=== PATIENT | female | born 1955 | race Caucasian/White ===

== ENCOUNTER 2025-04-27 10:36 | Outpatient (AMB) | payer MEDICARE, OTHER, SELFPAY ==
--- NOTE | 2025-04-27 11:01 | MHC.PC.OV ---
Vital Signs 04/27/25 11:09 Height 5 ft 4 in Weight 123 lb 8 oz BMI 21.2 BP 118/68 Blood Pressure Location Rt brachial Position Sitting Respiration 15 Pulse 82 Pulse Source Pulse Oximeter Temp 97.7 F Temp Source Temporal Artery Scan Pulse Oximetry (%) 98 Oxygen Delivery Method Room Air Intake Visit Reasons: medication refill/sciatic issue Intake Note: Ora presents in the office today to establish care. Weigher Packing Required: No Is last menstrual period known: No Post menopausal: Yes Patient : No Allergies Opioids - Morphine Analogues (Opioids-Morphine & Related) Allergy (Unknown, Unverified 04/28/25 11:05) MIGRAINE Sulfa (Sulfonamide Antibiotics) Allergy (Unknown, Unverified 04/28/25 11:05) SWELLING Tobacco use date assessed: 04/27/25 Fall risk assessment: No Falls in past year Last assessed Fall Risk: 04/27/25 Dental Screening Dental Screen Date: 04/27/25 Did you have a dental visit in the last 12 months?: Yes Did you have a dental problem in the last 6 months where you did not have access to dental care?: No Was dental information given to patient?: Patient has dentist HPI HPI Comments History of Present Illness Details The patient is a 69 year old female with a past medical history of hyperlipidemia, hypothyroid, osteoporosis, IgA deficiency, hypogammaglobulinemia, Von Willebrands, melanoma, lumbar radiculopathy presenting to establish care. Transfer from Dr Dhaliwal 09/2024 Endocrine: On levothyroxine. Osteoporosis on fosamax. Follows with [facility]. On fosamax 35 oral weekly. Has been intolerant of reclast in the past MSK: Gabapentin -for sleep and radicular back pain Migraine-On imitrex prn Allergies/Immunology: Dr Leggett. On Hizentra. Follows with dermatology, Dr Rich. Goes to [facility] once annually for mammography Follows with Jose Angel for frequent UTI Colon 12/11/2023-Dr Rose 10 year recall DXA 01/2025 Stopped seeing gynecology (Dr Marroquin). Mammo November 2024-[facility]. Has frequent call back ROS CONSTITUTIONAL: Denies weight loss, fever and chills. HEENT: Denies changes in vision and hearing. RESPIRATORY: Denies SOB and cough. CV: Denies palpitations and CP GI: Denies abdominal pain, nausea, vomiting and diarrhea. : Denies dysuria and urinary frequency. MSK: Denies new myalgia and joint pain. SKIN: Denies rash and pruritus. NEUROLOGICAL: Denies headache PSYCHIATRIC: Denies recent changes in mood. PHYSICAL EXAM: GENERAL: Alert and oriented x 3. NAD EYES: EOMI. Anicteric. HENT: Moist mucous membranes. No scleral icterus. No cervical lymphadenopathy. LUNGS: Clear to auscultation bilaterally. CARDIOVASCULAR: Regular rate and rhythm. No murmur. No JVD. ABDOMEN: Soft, non-tender +bs EXTREMITIES: No edema. Non-tender. SKIN: No rashes or lesions. Warm. NEUROLOGIC: No focal neurological deficits. CN II-XII grossly intact PSYCHIATRIC: Cooperative. Appropriate mood and affect [facility] Medical History (Updated 04/28/25 @ 14:26 by Sirena Ramos MD) Migraine Shingles Kidney infection Headache Spine disorder Osteoporosis Thyroid disorder Sinusitis Melanoma Broken wrist Broken leg Surgical History (Updated 04/27/25 @ 11:14 by Reshma Ashley [facility]) Hx of colonoscopy History of appendectomy History of bladder surgery Family History (Updated 04/27/25 @ 11:17 by Reshma Ashley CMA) Brother Substance abuse Alcoholism Mother Hypertension Breast cancer Father Hypertension Hyperlipidemia Maternal Grandmother Breast cancer Paternal Grandmother Lung cancer Social History (Updated 04/27/25 @ 11:09 by Reshma Ashley CMA) Housing: House Alcohol intake: current Patient Tobacco Use Status: Never used Tobacco e-Cigarette/Vaping Use: Never Used Second Hand Smoke Exposure: No service: No Current occupational status: employed and retired Cognitive needs: No Hearing needs: No Vision needs: No Questionnaire PHQ-9 Over the last 2 weeks, how often have you been bothered by any of the following problems? 1. Little interest or pleasure in doing things: not at all 2. Feeling down, depressed, or hopeless: not at all 3. Trouble falling or staying asleep, or sleeping too much: several days 4. Feeling tired or having little energy: several days 5. Poor appetite or overeating: not at all 6. Feeling bad about yourself - or that you are a failure or have let yourself or your family down: not at all 7. Trouble concentrating on things, such as reading the newspaper or watching television: not at all 8. Moving or speaking so slowly that other people could have noticed. Or the opposite - being so fidgety or restless that you have been moving around a lot more than usual: not at all 9. Thoughts that you would be better off or of hurting yourself in some way: not at all Total score: 2 Depression Screening Interpretation: Negative Depression Screening Done: Yes 13016 - PHQ-9 Billing: Yes Source: Developed by Drs. Keron Hartman, Amira Lacy, Abraham Spencer and colleagues, with an educational junior from [employer]. Thrive Questionnaire Date Thrive assessed: 04/27/25 I am a: Parent/Caregiver What is your living situation today?: I have a steady place to live Within the past 12 months, did the food you bought not last and you didn't have the money to get more?: Never true Within the past 12 months, did you worry whether your food would run out before you got money to buy more?: Never true Do you have trouble paying for medicines?: No Do you have trouble getting transportation to medical appointments?: No Do you have trouble paying your heating and electricity bill?: No Do you have trouble taking care of your child, family member or friend?: No Do you have trouble with day-to-day activities such as bathing, preparing meals, shopping, managing finances, etc.?: No Are you currently unemployed and looking for a job?: No Are you interested in more education?: No Please select the resources that you would like help with: None Currently or been in a relationship where the following occur: No concerns reported THRIVE Score: 0 AUDIT C Alcohol Use Questionnaire (AUDIT-C) 1. How often do you have a drink containing alcohol?: 2-4 times a month 2. How many drinks containing alcohol do you have on a typical day when you are drinking?: 1 or 2 3. How often do you have six or more drinks on one occasion?: Never Total Score: 2 NEHAL-7 AMB Questionnaire NEHAL-7 Date NEHAL - 7 assessed: 04/27/25 Feeling nervous, anxious, or on edge: 0 = Not at all Not being able to stop or control worryin = Not at all Worrying too much about different things: 0 = Not at all Trouble relaxin = Not at all Being so restless that it is hard to sit still: 0 = Not at all Becoming easily annoyed or irritable: 0 = Not at all Feeling afraid as if something awful might happen: 0 = Not at all Total NEHAL-7 score (0-4 normal; 5-9 mild; 10-14 moderate; 15-21 severe): 0 Source: Developed by Drs. Keron Hartman, Amira Lacy, Abraham Spencer and colleagues, with an educational junior from [employer]. NEHAL-7 Assessment Billing NEHAL-7 Assessment Tool: NEHAL-7 Assessment 20819 Physical exam (Primary Care) Vital Signs: Last Vital Signs Temp 97.7 F 04/27/25 11:09 Pulse 82 04/27/25 11:09 Resp 15 04/27/25 11:09 BP 118/68 04/27/25 11:09 Pulse Ox 98 04/27/25 11:09 Oxygen Delivery Method Room Air 04/27/25 11:09 BMI result Body Mass Index 21.2 Tobacco/Smoking Status: Tobacco use Status Tobacco use date assessed 04/27/25 04/27/25 11:08 Patient Tobacco Use Status Never used Tobacco 04/27/25 11:09 e-Cigarette/Vaping Use Never Used 04/27/25 11:09 PHQ-9: PHQ-9 Score PHQ-9: Total score 2 04/27/25 11:08 Depression Screening Interpretation: Negative Thrive Assessment: Date of Thrive Assessment Date Thrive assessed 04/27/25 04/27/25 11:03 Currently or been in a relationship where the following occur: No concerns reported Coding Level of Care Code Est Pt Level 4 (97532) Diagnoses Establishing care with new doctor, encounter for Z76.89 Hyperlipidemia, unspecified hyperlipidemia type E78.5 Hyperlipidemia type: unspecified Osteoporosis, unspecified osteoporosis type, unspecified pathological fracture presence M81.0 Osteoporosis type: unspecified Presence of current pathological fracture: unspecified Thyroid disorder E07.9 Malignant melanoma, unspecified site C43.9 Melanoma location: unspecified site Migraine without status migrainosus, not intractable, unspecified migraine type G43.909 Migraine type: unspecified Status migrainosus presence: without status migrainosus Intractability: not intractable Additional Codes NEHAL-7 Assessment Billing - NEHAL-7 Assessment Tool: NEHAL-7 Assessment 69369 ([id number]) PHQ-9 - 51089 - PHQ-9 Billing: Yes ([id number]) Assessment & Plan Assessment & Plan (1) Establishing care with new doctor, encounter for: Code(s): Z76.89 - Persons encountering health services in other specified circumstances (2) Hyperlipidemia: Code(s): E78.5 - Hyperlipidemia, unspecified Category: Medical Qualifiers: Hyperlipidemia type: unspecified Qualified Code(s): E78.5 - Hyperlipidemia, unspecified (3) Osteoporosis: Code(s): M81.0 - Age-related osteoporosis without current pathological fracture Category: Medical Qualifiers: Osteoporosis type: unspecified Presence of current pathological fracture: unspecified Qualified Code(s): M81.0 - Age-related osteoporosis without current pathological fracture (4) Thyroid disorder: Code(s): E07.9 - Disorder of thyroid, unspecified Category: Medical (5) Melanoma: Code(s): C43.9 - Malignant melanoma of skin, unspecified Category: Medical Qualifiers: Melanoma location: unspecified site Qualified Code(s): C43.9 - Malignant melanoma of skin, unspecified (6) Migraine: Code(s): G43.909 - Migraine, unspecified, not intractable, without status migrainosus Category: Medical Qualifiers: Migraine type: unspecified Status migrainosus presence: without status migrainosus Intractability: not intractable Qualified Code(s): G43.909 - Migraine, unspecified, not intractable, without status migrainosus Plan 69 year old female presenting to establish care Past medical, surgical, social reviewed Continues follow up with endocrinology. continue levothyroxine, fosamax Immunodeficiency-continue immunology follow up Migraines are stable Orders: Orders Lipid Panel 04/27/25 E78.5 - Hyperlipidemia, unspecified
[2025-04-27 11:09] VITALS: BP 118/68; PULSE 82; RESP 15; TEMP 36.5; O2SAT 98; BMI 21.2
--- OUTSIDE RECORDS SUMMARY | 2025-04-27 13:29 | XMS_ITS | Encounter Summary ---
Author Organization [facility] Address [address] [place] [address] [place] [id number] Phone Care Team Providers Care Mail Room Clerk Name Role Phone Js Dhaliwal DO Primary Care Provider Self-Referred, Patient Unavailable Unavailab Bishop Giles MD Unavailable [phone] Ankit Leggett DO Unavailable [phone] Isabel Castillo MD, MPH Unavailable [phone] Encounter Details Date Type Department Care Team (Late st Contact Info) Description 11/04/2018 Procedure Pass [facility] Periop [address] [place] [address] Social History Tobacco Use Types Packs/Day Years Used Date Smoking Tobacco: Never Smokeless Tobacco: Never Comments No Sex and Gender Information Value Date Recorded Sex Assigned at Female 05/19/2021 9:36 AM EST Legal Sex Female 6:07 PM EST Gender Identity Female 11/27/2019 10:26 AM EDT Sexual Orientation Straight 11/27/2019 10 :26 AM EDT documented as of this encounter Plan of Treatment Not on file documented as of this encounter Visit Diagnoses Not on filedocumented in this encounter Additional Health Concerns Infection Onset Date Last Indicated Resolved Time CoV-Exposed 07/04/2020 07/12/2020 07/18/2020 1:23 AM EST documented as of this encounter Care Teams Mail Room Clerk Relationship Specialty Start Date End Date Ti Dhaliwaly DO [place] [address] [facility] [place] [address] PCP - General Family Medicine 10/14/18 Self-Referred, Patient 10/14/18 Bishop Meade MD [address] [place] [id number] Referring Physician Dermatology 10/20/18 Ankit Leggett DO [address] [place] [phone] [email or web address] Allergy and Immunology 10/20/18 Isabel Castillo MD, MPH [address] [place] [address] [place] [address] [email or web address] Dermatology 07/08/20 documented as of this encounter Additional Source Comments The information contained in this document represents components of the legal health record. It is not the complete legal health record.[facility]
--- OUTSIDE RECORDS SUMMARY | 2025-04-27 13:29 | XMS_ITS | Clinical Summary ---
Author Organization [employer] Address [address] [place] [address] [address] [place] [address] Care Team Providers Care Roof Plumber Name Role Phone Unavailable Primary Care Provider Unavailabl e Allergies Active Allergy Reactions Criticality Noted Date Comments Sulfa Antibiotics 01/02/2023 Medications SUMAtriptan (Imitrex) 100 MG tablet sumatriptan 100 mg tablet TAKE 1 TABLET BY MOUTH EVERY DAY NEEDED Active SUMAtriptan (Imitrex) 50 MG tablet Take 50 mg by mouth. 0 Active moxifloxacin in NaCl (Avelox) 400 MG/250ML IVPB 0 Active methylPREDNISolo ne (Medrol Dospak) 4 MG tablets Active levothyroxine (Synthroid, Levoxyl) 50 MCG tablet Take 50 mcg by mouth. 3 Active immune globulin, human, (Hizentra) subcutaneous infusion Inject 200 mg/kg under the skin. 0 Active cyanocobalamin (Vitamin B-12) 250 MCG tablet Take 250 mcg by mouth in the morning. Active Cholecalciferol (Vitamin D) 50 MCG (1999) capsule Active budesonide-formo terol (Symbicort) 160-4.5 MCG/ACT inhaler INHALE 2 PUFFS BY MOUTH TWICE A DAY WHEN SICK 2 Active amoxicillin-clav ulanate (Augmentin) 500-125 MG tablet Active amitriptyline (Elavil) 25 MG tablet Take 25 mg by mouth in the morning. Active amitriptyline (Elavil) 25 MG tablet Take 1 tablet by mouth in the evening. 0 Active gabapentin (Neurontin) 100 MG capsule Take by mouth. Acti ve Encounters Date Type Department Care Team Description 03/15/2025 10:00 AM EST Office Visit [facility] [address] [place] [address] Erika Stevens 03/12/2025 Travel 03/04/2025 Travel from Last 3 Months Social History Tobacco Use Types Packs/Day Years Used Date Smoking Tobacco: Never Smokeless Tobacco: Never Tobacco Cessation:Counseling Given: Not Answered Comments No Sex and Gender Information Value Date Recorded Sex Assigned at Female 12/13/2022 4:03 PM EDT Legal Sex Female 2:41 PM EDT Gender Identity Female 12/13/2022 4:03 PM EDT Sexual Orientation Straight 12/13/2022 4: 03 PM EDT Last Filed Vital Signs Vital Sign Reading Time Taken Comments Blood Pressure 122/76 03/15/2025 9:28 AM EST Pulse 78 04/27/2024 9:14 AM EST Temperature - - Respiratory Rate - - Oxygen Saturation - - Inhaled Oxygen Concentration - - Weight - - Height - - Body Mass Index - - Plan of Treatment Upcoming Encounters Date Type Department Care Team (Late st Contact Info) Description 09/14/2025 9:30 AM EDT Office Visit [facility] [address] [place] [address] Lyndsay Earl Health Maintenance Due Date Last Done Comments CT Colonography 1957 Colonoscopy 1957 Colorectal Cancer Screening 1957 Dental X-Ray: Full Mouth 1957 Depression Screening 1957 FIT DNA/Cologuard 1957 FIT 1957 FOBT 1957 SDOH Screening 1957 Sigmoidoscopy 1957 Alcohol/Substance Use Screening 1969 Hepatitis C Screening 11/23/1975 DTaP/Tdap/Td Vaccines (1 - Tdap) 1976 Pneumococcal Vaccine: 50+ Years (1 of 2 - PCV) 1976 Zoster Vaccines (1 of 2) 1976 Mammogram 1997 RSV Patients and Patients Aged 60 years or older (1 - Risk 50-74 years 1-dose series) 11/23/2007 COVID-19 Vaccine (3 - Pfizer risk series) 09/07/2020 08/10/2020, 07/20/2020 Influenza Vaccine (#1) 2025 , 02/24/2020, 03/31/2019, Additional history exists Dental Oral Exam 09/13/2025 03/15/2025, 02/2024, 04/17/2023 Dental Prophylaxis 09/13/2025 03/15/2025, 1 06/28/2023, 10/21/2023, Additional history exists Tobacco Screening 03/15/2026 03/15/2025 Dental X-Ray: Bitewings 03/16/2026 03/15/2025, 01/02 HIB Vaccines Aged Out No longer eligi ble based on patient's age to complete this topic HPV Vaccines Aged Out No longer eligi ble based on patient's age to complete this topic Hepatitis A Vaccines Aged Out No long er eligible based on patient's age to complete this topic Hepatitis B Vaccines Aged Out No long er eligible based on patient's age to complete this topic IPV Vaccines Aged Out No longer eligi ble based on patient's age to complete this topic Meningococcal B Vaccine Aged Out No l onger eligible based on patient's age to complete this topic Meningococcal Vaccine Aged Out No mackenzie thomas eligible based on patient's age to complete this topic RSV under 20 months Aged Out No longe r eligible based on patient's age to complete this topic Rotavirus Vaccines Aged Out No longer eligible based on patient's age to complete this topic Procedures Procedure Name Priority Date/Time Associated Diagnosis Comments PERIODIC ORAL EVALUATION - ESTABLISHED PATIENT Routine 03/15/2025 10:00 AM EST BITEWINGS - 4 RADIOGRAPHIC IMAGES Routine 03/15/2025 10:00 AM EST PROPHYLAXIS - ADULT Routine 03/15/2025 1 0:00 AM EST from Last 3 Months Insurance DENTAL - [facility] [place] [id number]
--- OUTSIDE RECORDS SUMMARY | 2025-04-27 13:29 | XMS_ITS | Encounter Summary ---
Author Organization [employer] Address [address] [place] [address] Care Team Providers Care Customer Success Advocate Name Role Phone Unavailable Primary Care Provider Unavailabl e Reason for Visit * Reason Onset Date Comments antibiotic 02/26/2023 Encounter Details Date Type Department Care Team ([facility] st Contact Info) Description 02/26/2023 Telephone [facility] [address] [place] [address] Kashmir García DDS [address] [place] [address] antibiotic Social History Tobacco Use Types Packs/Day Years Used Date Smoking Tobacco: Never Assessed Comments No Sex and Gender Information Value Date Recorded Sex Assigned at Female 12/13/2022 4:03 PM EDT Legal Sex Female 2:41 PM EDT Gender Identity Female 12/13/2022 4:03 PM EDT Sexual Orientation Straight 12/13/2022 4: 03 PM EDT documented as of this encounter Miscellaneous Notes * Telephone Encounter - Cynthia Sutton - 02/26/2023 9:36 AM EDT Patient came in yesterday and saw Dr. Berkowitz. She states she has an infection that has travelled upinto her sinus. Yesterday she had a little pain but today the pain is increasingly worse. She is looking for antibiotic script to be sent over. She has an appt for RCT on 03/18 and doesn't want to gothat long without something to help with the infection. Can you assist with medication? documented in this encounter Plan of Treatment Upcoming Encounters Date Type Department Care Team (Late st Contact Info) Description 09/14/2025 9:30 AM EDT Office Visit [facility] [address] [place] [address] Lyndsay Earl documented as of this encounter Visit Diagnoses Not on filedocumented in this encounter
--- OUTSIDE RECORDS SUMMARY | 2025-04-27 13:29 | XMS_ITS | Clinical Summary ---
Author Organization Located Within [facility] Address [address] [place] [address] [place] [address] Phone Care Team Providers Care Acute Coordinator Name Role Phone IsraJs Primary Care Provider Self-Referred, Patient Unavailable Unavailab Bishop Giles MD Unavailable [phone] Ankit Leggett DO Unavailable [phone] Isabel Castillo MD, MPH Unavailable [phone] Allergies Active Allergy Reactions Criticality Noted Date Comments Codeine 11/04/2018 Migraines Meperidine Headaches 10/29/2018 Migraine Morphine Headaches 10/29/2018 Terrible migraines Has tolerated low-dose dilaudid Oxycodone-Acetaminophen Headaches 10/29/2018 Migraine Sulfa (Sulfonamide Antibiotics) Swelling 10/14/2018 Medications immune globulin, human, (HIZENTRA) 4 gram/20 mL (20 %) Soln Inject 200 mg/kg under the skin every 7 days. Active levothyroxine (SYNTHROID, LEVOTHROID) 50 MCG tablet Take 50 mcg by mouth every morning. Active sumatriptan succinate (IMITREX ORAL) Take by mouth as needed. Active cholecalciferol, vitamin D3, (VITAMIN D3 ORAL) Take 2,000 Units by mouth daily. Active Active Problems Problem Noted Date Diagnosed Date Cellulitis 12/06/2018 Melanoma of lower leg, right 10/22/2018 Common variable immunodeficiency Hypothyroidism Malignant melanoma Migraines Osteoporosis Family History Medical History Relation Comments Basal cell carcinoma Father Breast cancer Maternal Grandmother Breast cancer Mother Lung cancer Paternal Grandmother Relation Status Comments Father Alive Maternal Grandmother Mother Alive Paternal Grandmother Social History Tobacco Use Types Packs/Day Years Used Date Smoking Tobacco: Never Smokeless Tobacco: Never Education Answer Date Recorded Are you interested in more education? Not on dorys e 09/16/2022 Are you concerned about learning? Not on file 09/16/2022 No 09/16/2022 No 09/16/2022 Digital Access Answer Date Recorded No 10/07/2022 No 10/07/2022 Reliable internet access at home? Not on file 10/07/2022 Device with a working camera? Not on file Comments No Sex and Gender Information Value Date Recorded Sex Assigned at Female 05/19/2021 9:36 AM EST Legal Sex Female 6:07 PM EST Gender Identity Female 11/27/2019 10:26 AM EDT Sexual Orientation Straight 11/27/2019 10 :26 AM EDT Last Filed Vital Signs Vital Sign Reading Time Taken Comments Blood Pressure 146/67 08/10/2024 10:09 AM EDT Pulse 66 08/10/2024 10:09 AM EDT Temperature 36.3 C (97.4 F) 08/10/2024 10:09 AM EDT Respiratory Rate 16 08/10/2024 10:09 AM EDT Oxygen Saturation 100% 08/10/2024 10:09 AM EDT Inhaled Oxygen Concentration - - Weight 59.5 kg (131 lb 2.8 oz) 08/10/2024 10:09 AM EDT Height 163.7 cm (5' 4.45 ) 08/10/2024 10:09 AM E DT Body Mass Index 22.2 08/10/2024 10:09 AM EDT Plan of Treatment Health Maintenance Due Date Last Done Comments Adult Td,Tdap Booster 1957 LIPID PANEL 1957 TSH LEVEL 1957 DEPRESSION SCREENING 1969 HEPATITIS C SCREENING 11/23/1975 PNEUMOCOCCAL VACCINES (50+ years) (1 of 2 - PCV) 1976 ZOSTER VACCINES (1 of 2) 1976 MAMMOGRAM 1997 COLOGUARD 2002 COLONOSCOPY 2002 COLORECTAL CANCER SCREENING 2002 FIT TEST 2002 FOBT 2002 SIGMOIDOSCOPY 2002 VIRTUAL COLONOSCOPY 2002 RSV VACCINE (1 - Risk 50-74 years 1-dose series) 11/23/2007 OSTEOPOROSIS SCREENING INITIAL (ONE-TIME) 2022 INFLUENZA VACCINE (#1) 2024 , 02/24/2020, 03/31/2019, Additional history exists COVID-19 VACCINE ( season) 2025 08/10/2020, 07/20/2020 SMOKING STATUS SCREENING (Once After 26 Yrs) Completed 05/18/2019 HEPATITIS A VACCINES Aged Out No long er eligible based on patient's age to complete this topic HIB VACCINES Aged Out No longer eligi ble based on patient's age to complete this topic MENINGOCOCCAL VACCINES (ACWY) Aged Out No longer eligible based on patient's age to complete this topic MENINGOCOCCAL VACCINES (B) Aged Out N o longer eligible based on patient's age to complete this topic Medical Devices Not on file Insurance [facility] MEDICARE SUPPLEMENT MEDICARE PART A & B [facility] MEDICARE SUPPLEMENT MEDICARE PART A & B [facility] MEDICARE SUPPLEMENT MEDICARE PART A & B [facility] MEDICARE SUPPLEMENT MEDICARE PART A & B [facility] MEDICARE SUPPLEMENT MEDICARE PART A & B [facility] MEDICARE SUPPLEMENT MEDICARE PART A & B Advance Directives For more information, please contact: [phone] (9AM - 5PM [facility], Saturday-Saturday) Documents on File Type Date Recorded Patient Front Desk Supervisor Expl anation Healthcare Proxy 10/29/2018 10/29/2018 * Full Code (Presumed) (Latest Code Status on File) Date Activated Date Inactivated Comments 12/06/2018 1:50 AM 12/07/2018 1:29 PM Care Teams Acute Coordinator Relationship Specialty Start Date End Date Js Dhaliwal DO [address] [facility] [place] [address] PCP - General Family Medicine 10/14/18 Self-Referred, Patient 10/14/18 Bishop Meade MD [address] [place] [address] Referring Physician Dermatology 10/20/18 Ankit Leggett DO [address] [place] [address] [email or web address] Allergy and Immunology 10/20/18 Isabel Castillo MD, MPH [address] [place] [address] [place] [address] [email or web address] Dermatology 07/08/20 Additional Source Comments The information contained in this document represents components of the legal health record. It is not the complete legal health record.Located Within [facility]
== END 2025-04-27 11:34 | disposition home or self-care (01) ==
LOC: HO.HMCFM 10:37
PROVIDERS: PCP Internal Medicine; Visit Provider Internal Medicine
DX: Z76.89 Persons encountering health services in other specified circumstances (principal); E78.5 Hyperlipidemia, unspecified; M81.0 Age-related osteoporosis without current pathological fracture; E07.9 Disorder of thyroid, unspecified; C43.9 Malignant melanoma of skin, unspecified; G43.909 Migraine, unspecified, not intractable, without status migrainosus

== ENCOUNTER → 2025-04-27 10:36 | Outpatient (BNVA) | payer MEDICARE, OTHER, SELFPAY | PROVIDERS: Visit Provider Internal Medicine | DX: Z76.89 Persons encountering health services in other specified circumstances (principal); M81.0 Age-related osteoporosis without current pathological fracture; E78.5 Hyperlipidemia, unspecified; C43.9 Malignant melanoma of skin, unspecified; G43.909 Migraine, unspecified, not intractable, without status migrainosus; Z13.31 Encounter for screening for depression; Z13.39 Encounter for screening examination for other mental health and behavioral disorders; E07.9 Disorder of thyroid, unspecified | CPT/HCPCS: 96127; 99212 ==

== ENCOUNTER 2025-04-28 10:50 | Outpatient (AMB) | payer MEDICARE, OTHER, SELFPAY ==
--- NOTE | 2025-04-28 11:01 | MHC.OFFVIS ---
Intake Visit Reasons: 8M/ Migraine Allergies Opioids - Morphine Analogues (Opioids-Morphine & Related) Allergy (Unknown, Unverified 04/28/25 11:05) MIGRAINE Sulfa (Sulfonamide Antibiotics) Allergy (Unknown, Unverified 04/28/25 11:05) SWELLING Medication List - Last Reconciled 04/28/25 by Bobbi Mock, MIRANDA alendronate 35 mg PO QWEEK budesonide-formoterol 80-4.5 mcg/actuation (Symbicort) 1 inh inhalation BID cholecalciferol (vitamin D3) 50 mcg PO DAILY ciprofloxacin HCl 500 mg PO BID immun glob G(IgG)-pro-IgA 0-50 4 gram/20 mL (20 %) (Hizentra) 20 mL subcut QWEEK levothyroxine 50 mcg PO DAILY moxifloxacin 400 mg PO DAILY rimegepant (Nurtec ODT) 75 mg PO DAILY PRN sumatriptan succinate mg PO HPI Comments Details: She was doing okay. Migraines were happening about 1x/week. Nurtec was a miracle. She was using nurtec as needed with good relief and no side effects. She was still using sumatriptan on occasion, especially if she got headache at night as sumatriptan made her more tired. She was under some stress related to coordinating healthcare and referrals for her father. Sleep was up and down. Triggers for migraines include lack of sleep and strong odors. Slightly more migraines with allergy season and takes Claritin. Tried and failed Maxalt in the past. Gets some nausea with sumatriptan. No episodes of vertigo. LBP and R sciatica has been okay. Going to gym. She retired from teaching in 2021. Hx of frequent UTI and sinusitis that responds well to Augmentin. Lymph nodes were negative after melanoma surgery. Brother . Bone density stable. Had problems with Reclast including 8 UTIs and worsening migraines. She first presented to this office in 1994 for evaluation menstrual migraines. She has done very well in terms of migraine control, currently on Imitrex 100 mg. Usually gets only one or 2 migraines in a six-month period, usually relieved by Imitrex within one to 2 hours. 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 [facility] Medical History (Updated 04/28/25 @ 11:03 by Bobbi Mock CNP) Migraine Shingles Kidney infection Headache Spine disorder Osteoporosis Thyroid disorder Sinusitis Melanoma Broken wrist Broken leg Surgical History (Updated 04/27/25 @ 11:14 by Reshma Ashley [facility]) Hx of colonoscopy History of appendectomy History of bladder surgery Family History (Updated 04/27/25 @ 11:17 by Reshma Ashley [facility]) Brother Substance abuse Alcoholism Mother Hypertension Breast cancer Father Hypertension Hyperlipidemia Maternal Grandmother Breast cancer Paternal Grandmother Lung cancer Social History (Updated 04/27/25 @ 11:09 by Reshma Ashley [facility]) Housing: House Alcohol intake: current Patient Tobacco Use Status: Never used Tobacco e-Cigarette/Vaping Use: Never Used Second Hand Smoke Exposure: No service: No Current occupational status: employed and retired Cognitive needs: No Hearing needs: No Vision needs: No Review of Systems Const Denies chills, Denies daytime sleepiness, Reports difficulty sleeping, Denies fatigue, Denies fever(s), Denies frequent falls, Reports headache(s), Denies increased appetite, Denies poor appetite, Denies snoring, Denies weakness, Denies weight gain and Denies weight loss Eyes Denies loss of vision ENT Denies vertigo, Denies dizziness, Reports headache(s) and Denies neck pain Card Denies chest pain at rest, Denies chest pain with activity, Denies syncope, Denies leg edema, Denies palpitations, Denies dyspnea and Denies dyspnea on exertion Resp Denies cough, Denies dyspnea, Denies dyspnea on exertion and Denies snoring GI Denies abdominal pain, Denies constipation, Denies heartburn, Denies diarrhea and Denies nausea Denies urinary frequency, Denies urinary incontinence and Denies urinary urgency Musc Denies abnormal gait, Denies back pain, Denies myalgias, Denies arthralgias, Denies neck pain, Denies numbness and Denies tingling Neuro Denies abnormal gait, Denies vertigo, Denies dizziness, Denies syncope, Denies frequent falls, Reports headache(s), Denies lack of coordination, Denies loss of vision, Denies memory loss, Denies numbness, Denies Other visual disturbances, Denies restless legs, Denies seizure-like activity, Denies tingling, Denies paresthesias, Denies tremor(s) and Denies weakness Psych Denies anxiety, Denies depression, Denies auditory hallucinations, Denies memory loss and Denies visual hallucinations Endo Denies fatigue and Denies palpitations Physical Exam Const Other: General Appearance:? normal, in no acute distress. Heart:? S1, S2 normal, no murmurs. Lungs:? clear anteriorly and posteriorly. Musculoskeletal:? normal. Extremities:? no edema. Psych:? alert, oriented, cognitive function intact, cooperative with exam. Neuro Other: Abnormal Neurological Findings:?none.? Mental Status: alert and oriented X 3. Normal attention, orientation, memory, and affect. Cranial Nerves: Pupils are equal, round, and reactive to light. External ocular muscles are intact. Visual butler are full, no ptosis. Face is symmetrical, no facial weakness or droop. Facial sensations are normal. Tongue protrudes in midline. Palate elevates symmetrically. Shoulder shrugging is normal Motor Examination: Normal muscle tone, bulk and strength. No atrophy or fasciculations. No drift of the extended upper extremities. DTR 2+. Plantars are flexor. Sensory Exam: Normal light touch, temperature, pinprick, vibration, and joint-position sensations. Rhomberg sign is absent. Coordination: No ataxia. No titubation. Gait Exam: Within normal limits. Cerebellar Signs: Djauue-di-kpee is okay. Extrapyramidal System: No tremor, rigidity with normal facial expressions. No bradykinesia. No bradyphrenia. Normal arm swing and posture. No propulsion or retropulsion. Speech: Normal. Assessment & Plan Assessment & Plan (1) Migraine: Code(s): G43.909 - Migraine, unspecified, not intractable, without status migrainosus Category: Medical Qualifiers: Migraine type: unspecified Status migrainosus presence: without status migrainosus Intractability: not intractable Qualified Code(s): G43.909 - Migraine, unspecified, not intractable, without status migrainosus Plan: Continue Nurtec 75mg 1 tablet as needed for migraines #8 for 30 days. Continue sumatriptan 100mg 1 tablet as needed for migraines. Follow up in 6 months or sooner as needed. Plan Meds tried: rizatriptan, sumatriptan Medications: New rimegepant (Nurtec ODT) 75 mg PO DAILY PRN 8 tabs 5RF migraine headache 30 days Coding Level of Care Code Est Pt Level 4 (90326) Diagnoses Migraine without status migrainosus, not intractable, unspecified migraine type G43.909 Migraine type: unspecified Status migrainosus presence: without status migrainosus Intractability: not intractable
--- OUTSIDE RECORDS SUMMARY | 2025-04-28 14:03 | XMS_ITS | Encounter Summary ---
Author Organization [employer] Address [address] [place] [address] Care Team Providers Care Furnace Roaster Name Role Phone Unavailable Primary Care Provider Unavailabl e Reason for Visit * Reason Onset Date Comments antibiotic 02/26/2023 Encounter Details Date Type Department Care Team ([facility] st Contact Info) Description 02/26/2023 Telephone [facility] [address] [place] [address] Kashmir García DDS [address] [place] [address] antibiotic Social History Tobacco Use Types Packs/Day [...] Description 09/14/2025 9:30 AM EDT Office Visit [facility] ADULT DENTAL [address] [place] [address] Lyndsay Earl documented as of this encounter Visit Diagnoses Not on filedocumented in this encounter
--- OUTSIDE RECORDS SUMMARY | 2025-04-28 14:03 | XMS_ITS | Encounter Summary ---
Author Organization [facility] Address [address] [place] [address] [place] [address] Phone Care Team Providers Care Rn Document Improvement Name Role Phone Js Dhaliwal DO Primary Care Provider Self-Referred, Patient Unavailable Unavailab Bishop Giles MD Unavailable [phone] Ankit Leggett DO Unavailable [phone] Isabel Castillo MD, MPH Unavailable [phone] Encounter Details Date Type Department Care Team (Late st Contact Info) Description 11/04/2018 Procedure Pass [facility] Periop [address] [place] [address] Social History Tobacco Use Types Packs/Day Years [...] documented as of this encounter Care Teams Rn Document Improvement Relationship Specialty Start Date End Date Ti Dhaliwaly DO D[place] [address] [facility] [place] [address] PCP - General Family Medicine 10/14/18 Self-Referred, Patient 10/14/18 Bishop Meade MD [address] [place] [address] Referring Physician Dermatology 10/20/18 Ankit Leggett DO [address] [place] [address] [email or web address] Allergy and Immunology 10/20/18 Isabel Castillo MD, MPH [address] [place] [address] [place] [address] [email or web address] Dermatology 07/08/20 documented as of this encounter Additional Source Comments The information contained in this document represents components of the legal health record. It is not the complete legal health record.[facility]
--- OUTSIDE RECORDS SUMMARY | 2025-04-28 14:03 | XMS_ITS | Clinical Summary ---
Author Organization [employer] Address [address] [place] [address] [address] [place] [address] Care Team Providers Care Senior Relationship Manager Name Role Phone Unavailable Primary Care Provider [...] Description 03/15/2025 10:00 AM EST Office Visit [facility] ADULT DENTAL [address] [place] [address] Erika Stevens 03/12/2025 Travel 03/04/2025 Travel from [...] 09/14/2025 9:30 AM EDT Office Visit [facility] AD[facility]AL [address] [place] [address] Lyndsay Earl Health Maintenance Due Date Last [...] Insurance DENTAL - [facility] [place] [id number]
--- OUTSIDE RECORDS SUMMARY | 2025-04-28 14:03 | XMS_ITS | Clinical Summary ---
Author Organization [facility] Address [address] [place] [address] [place] [address] Phone Care Team Providers Care Bioengineer Name Role Phone IsraJs Primary Care Provider Self-Referred, Patient Unavailable Unavailab Bishop Giles MD Unavailable [phone] Ankit Leggett DO Unavailable Isabel Castillo MD, MPH Unavailable [phone] Allergies Active Allergy Reactions Criticality Noted Date [...] topic Medical Devices Not on file Insurance [facility] MEDICARE SUPPLEMENT MEDICARE PART A & B [facility] MEDICARE SUPPLEMENT MEDICARE PART A & B [facility] MEDICARE SUPPLEMENT MEDICARE PART A & B [facility] MEDICARE SUPPLEMENT MEDICARE PART A & B [facility] MEDICARE SUPPLEMENT MEDICARE PART A & B [facility] MEDICARE SUPPLEMENT MEDICARE PART A & B Advance Directives For more information, please contact: [phone] (9AM - 5PM [facility], Saturday-Saturday) Documents on File Type Date Recorded Patient Funeral Workers Expl anation Healthcare Proxy 10/29/2018 10/29/2018 * Full Code (Presumed) (Latest Code Status on File) Date Activated Date Inactivated Comments 12/06/2018 1:50 AM 12/07/2018 1:29 PM Care Teams Bioengineer Relationship Specialty Start Date End Date Js Dhaliwal DO [address] [facility] [place] [address] PCP - General Family Medicine 10/14/18 Self-Referred, Patient 10/14/18 Bishop Meade MD [address] [place] [address] Referring Physician Dermatology 10/20/18 Ankit Leggett DO [address] [place] [address] [email or web address] Allergy and Immunology 10/20/18 Isabel Castillo MD, MPH [address] [place] [address] [place] [address] [email or web address] Dermatology 07/08/20 Additional Source Comments The information contained in this document represents components of the legal health record. It is not the complete legal health record.[facility]
== END 2025-04-28 11:31 | disposition home or self-care (01) ==
LOC: HO.HSM 10:51
PROVIDERS: PCP Internal Medicine; Referring Provider Family Medicine; Visit Provider Registered Nurse
DX: G43.909 Migraine, unspecified, not intractable, without status migrainosus (principal)
CPT/HCPCS: 99214

== ENCOUNTER → 2025-04-28 10:50 | Outpatient (BNVA) | payer MEDICARE, OTHER, SELFPAY | PROVIDERS: PCP Internal Medicine; Referring Provider Family Medicine; Visit Provider Registered Nurse | DX: G43.909 Migraine, unspecified, not intractable, without status migrainosus (principal) | CPT/HCPCS: 99212 ==